=== PATIENT | female | born 1975 | race Caucasian/White ===

== ENCOUNTER 2018-01-25 12:06 | Emergency (ER) | payer SELFPAY ==
[~2018-01-25] VITALS: Ht 160 cm; Wt 126.1 kg
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
[2018-01-25 14:00] VITALS: BP 144/82
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
[2018-01-25] MEDS ORDERED: DICL50TA4 PO (14:57)
[2018-01-25] MEDS ORDERED: CYCL10TA2 PO (14:57)
== END 2018-01-25 14:55 | disposition home or self-care (01) ==
LOC: ER 12:06
DX: S29.019A Strain of muscle and tendon of unspecified wall of thorax, initial encounter (principal); S16.1XXA Strain of muscle, fascia and tendon at neck level, initial encounter; V53.6XXA Passenger in pick-up truck or van injured in collision with car, pick-up truck or van in traffic accident, initial encounter; Y93.89 Activity, other specified; Y92.410 Unspecified street and highway as the place of occurrence of the external cause; Y99.8 Other external cause status
CPT/HCPCS: 72125; 72128; 99284

== ENCOUNTER 2018-05-12 05:15 | Emergency (ER) | payer SELFPAY ==
[~2018-05-12] VITALS: Ht 160 cm; Wt 126.1 kg
[~2018-05-12 05:15] MED LIST: CYCL10TA2 PO; DICL50TA4 PO
[2018-05-12] MEDS ORDERED: IPRATRPIUM/ALBUTEROL 0.5/2.5MG 3 ML NEBU. NEB ONE (05:30)
--- NOTE | 2018-05-12 05:31 | PHYS DOC ---
Past Medical History Past Medical History: Asthma Past Surgical History: No Surgical History Alcohol Use: None Drug Use: None Adult General Chief Complaint Chief Complaint: ASTHMA HPI HPI Patient is a 42-year-old female who presents with complaint of wheezing and shortness of breath that started yesterday. Patient states that she has a nebulizer at home and has done one treatment without success. She states that she thought that this was just a viral infection that it would get better but she is getting worse. She denies any fever or productive cough. She also denies any congestion. Patient states that symptoms are worsened with minimal exertion. She states that she has no alleviating factors. Review of Systems Review of Systems Constitutional: Denies fever or chills [] HENT: Denies nasal congestion or sore throat [] Respiratory: [place] of cough, wheezing and shortness of breath [] Cardiovascular: No additional information not addressed in HPI [] Integument: Denies rash or skin lesions [] All other systems were reviewed and found to be within normal limits, except as documented in this note. Current Medications Current Medications Current Medications Medications (Trade) Dose Ordered Sig/Radha Start Time Stop Time Status Last Admin Dose Admin Acetaminophen (Tylenol) 1,000 mg 1X ONCE 05/12/18 05:45 05/12/18 05:46 DC 05/12/18 05:55 1,000 MG Albuterol/ Ipratropium (Duoneb) 3 ml 1X ONCE 05/12/18 05:30 05/12/18 05:32 DC 05/12/18 05:31 3 ML Methylprednisolone Sodium Succinate (SOLU-Medrol 125MG VIAL) 125 mg 1X ONCE 05/12/18 05:45 05/12/18 05:46 DC 05/12/18 05:54 125 MG Allergies Allergies Allergies Coded Allergies Type Severity Reaction Last Updated Verified Penicillins Allergy Unknown 05/12/18 Yes Uncoded Allergies Type Severity Reaction Last Updated Verified asa Allergy Unknown Unknown 05/12/18 Physical Exam Physical Exam Constitutional: Well developed, well nourished, no acute distress, non-toxic appearance. [] HENT: Normocephalic, atraumatic, bilateral external ears normal, oropharynx moist, no oral exudates, nose normal. [] Eyes: PERRLA, EOMI, conjunctiva normal, no discharge. [] Neck: Normal range of motion, no tenderness, supple, no stridor. [] Cardiovascular: Mildly tachycardic rate with regular rhythm [] Lungs & Thorax: There is fairly good air movement throughout with inspiratory and expiratory wheezes bilaterally to auscultation [] Abdomen: Bowel sounds normal, soft, no tenderness. [] Skin: Warm, dry, no erythema, no rash. [] Extremities: No tenderness, no cyanosis, no clubbing, ROM intact, no edema. [] Neurologic: Awake and alert, no focal deficits noted. [] Current Patient Data Vital Signs Vital Signs Date Time Temp Pulse Resp B/P (MAP) Pulse Ox O2 Delivery O2 Flow Rate FiO2 05/12/18 05:36 96 Room Air 05/12/18 05:29 99.7 102 32 121/74 (90) 99.7 Lab Values Laboratory Tests Test 05/12/18 05:20 05/12/18 05:30 White Blood Count 9.2 x10^3/uL (4.0-11.0) Red Blood Count 4.42 x10^6/uL (3.50-5.40) Hemoglobin 12.4 g/dL (12.0-15.5) Hematocrit 37.5 % (36.0-47.0) Mean Corpuscular Volume 85 fL (79-100) Mean Corpuscular Hemoglobin 28 pg (25-35) Mean Corpuscular Hemoglobin Concent 33 g/dL (31-37) Red Cell Distribution Width 15.9 % (11.5-14.5) H Platelet Count 309 x10^3/uL (140-400) Neutrophils (%) (Auto) 75 % (31-73) H Lymphocytes (%) (Auto) 17 % (24-48) L Monocytes (%) (Auto) 5 % (0-9) Eosinophils (%) (Auto) 2 % (0-3) Basophils (%) (Auto) 1 % (0-3) Neutrophils # (Auto) 6.9 x10^3uL (1.8-7.7) Lymphocytes # (Auto) 1.6 x10^3/uL (1.0-4.8) Monocytes # (Auto) 0.4 x10^3/uL (0.0-1.1) Eosinophils # (Auto) 0.2 x10^3/uL (0.0-0.7) Basophils # (Auto) 0.1 x10^3/uL (0.0-0.2) Sodium Level 140 mmol/L (136-145) Potassium Level 3.7 mmol/L (3.5-5.1) Chloride Level 105 mmol/L (98-107) Carbon Dioxide Level 27 mmol/L (21-32) Anion Gap 8 (6-14) Blood Urea Nitrogen 9 mg/dL (7-20) Creatinine 0.8 mg/dL (0.6-1.0) Estimated GFR (Cockcroft-Gault) 79.4 BUN/Creatinine Ratio 11 (6-20) Glucose Level 123 mg/dL (70-99) H Lactic Acid Level 2.3 mmol/L (0.4-2.0) H Calcium Level 8.3 mg/dL (8.5-10.1) L Total Bilirubin 0.2 mg/dL (0.2-1.0) Aspartate Amino Transferase (AST) 14 U/L (15-37) L Alanine Aminotransferase (ALT) 18 U/L (14-59) Alkaline Phosphatase 164 U/L (46-116) H Total Protein 7.3 g/dL (6.4-8.2) Albumin 2.4 g/dL (3.4-5.0) L Albumin/Globulin Ratio 0.5 (1.0-1.7) L Influenza Type A Antigen Negative (NEGATIVE) Influenza Type B Antigen Negative (NEGATIVE) Laboratory Tests 05/12/18 05:20 Laboratory Tests 05/12/18 05:20 EKG EKG [] Radiology/Procedures Radiology/Procedures [] Impressions: sharyn suspect right basilar pna atypical pattern Course & Med Decision Making Course & Med Decision Making Pertinent Labs and Imaging studies reviewed. (See chart for details) [] lnaghan: sign out from kassandra, asthma exacerbation. Getting labs and asked me to reassess and x-ray suspect atypical pattern pna. sat 94 ra on my reeval and she feels much better, the lungs sound good, minimal if any wheeze rx prednisone albuterol doxycycline flu neg return prec discussed pt reassured Juarze Disclaimer Juarez Disclaimer This electronic medical record was generated, in whole or in part, using a voice recognition dictation system. Departure Departure Impression: Primary Impression: Pneumonia Disposition: 01 HOME, SELF-CARE Condition: STABLE Referrals: NO PCP (PCP) Scripts Albuterol Sulfate (ALBUTEROL SULFATE NEB SOLN) 2.5 Mg/3 Ml Vial.neb 1 VIAL NEB PRN Q4HRS, #50 VIAL Prov: JAYASHREE VINSON MD 05/12/18 Prednisone (PREDNISONE) 50 Mg Tablet 1 TAB PO DAILY, #5 TAB Prov: JAYASHREE VINSON MD 05/12/18 Doxycycline Hyclate (DOXYCYCLINE HYCLATE) 100 Mg Tablet 1 TAB PO BID, #20 TAB Prov: JAYASHREE VINSON MD 05/12/18 KIANA RUIZ Jr. DO May 12, 2018 05:31 JAYASHREE VINSON MD May 12, 2018 07:16
[2018-05-12] MEDS ORDERED: methylPREDNISolone SOD SUCC PF 125 MG/2 ML VIAL. IV ONE (05:45)
[2018-05-12] MEDS ORDERED: ACETAMINOPHEN 500 MG TABLET PO ONE (05:45)
[2018-05-12 05:48] LABS: BASO # 0.1 x10^3/uL (0.0-0.2); BASO % 1 % (0-3); EOS # 0.2 x10^3/uL (0.0-0.7); EOS % 2 % (0-3); HEMATOCRIT 37.5 % (36.0-47.0); HEMOGLOBIN 12.4 g/dL (12.0-15.5); LYMPH # 1.6 x10^3/uL (1.0-4.8); LYMPH % 17 % (24-48); MEAN CORPUSCULAR HEMOGLOBIN 28 pg (25-35); MEAN CORPUSCULAR HGB CONC 33 g/dL (31-37); MEAN CORPUSCULAR VOLUME 85 fL (79-100); MONO # 0.4 x10^3/uL (0.0-1.1); MONO % 5 % (0-9); NEUT # 6.9 x10^3uL (1.8-7.7); NEUT % 75 % (31-73); PLATELET COUNT 309 x10^3/uL (140-400); RED BLOOD COUNT 4.42 x10^6/uL (3.50-5.40); RED CELL DISTRIBUTION WIDTH 15.9 % (11.5-14.5); WHITE BLOOD COUNT 9.2 x10^3/uL (4.0-11.0)
[2018-05-12 05:57] LABS: CALCIUM 8.3 mg/dL (8.5-10.1); CREATININE 0.8 mg/dL (0.6-1.0); GFR 79.4; POTASSIUM 3.7 mmol/L (3.5-5.1)
[2018-05-12 06:03] LABS: ALBUMIN 2.4 g/dL (3.4-5.0); ALBUMIN/GLOBULIN RATIO 0.5 (1.0-1.7); TOTAL BILIRUBIN 0.2 mg/dL (0.2-1.0); TOTAL PROTEIN 7.3 g/dL (6.4-8.2)
[2018-05-12 06:28] LABS: INFLUENZA A PATIENT NEGATIVE (NEGATIVE); INFLUENZA B PATIENT NEGATIVE (NEGATIVE)
[2018-05-12 06:58] VITALS: BP 123/79
--- NOTE | 2018-05-12 07:00 | EKG ---
[facility] [address] [place] [address] Test Date: 2018-05-12 Test Time: 05:58:04 Pat Name: BHANU TOUSSAINT Department: Room: Gender: F Web Producer: : 1975 Requested By: KIANA RUIZ Order Number: [id number] Reading MD: Fransisco Astorga Measurements Intervals [place] Rate: 92 P: 36 HI: 144 QRS: 49 QRSD: 74 T: 43 QT: 350 QTc: 438 Interpretive Statements SINUS RHYTHM Electronically Signed On 05-26-2018 14:20:30 COURT BAILIFF OR SHERIFF by Fransisco Astroga
[2018-05-12] MEDS ORDERED: DOXY100T PO (07:05)
[2018-05-12] MEDS ORDERED: PRED50TA PO (07:05)
[2018-05-12] MEDS ORDERED: ALBU2.5V5 NEB (07:08)
--- NOTE | 2018-05-12 07:46 | RAD ---
Chest, 2 views, 05/12/2018: HISTORY: Shortness of breath, chest pain The heart size is normal. No pulmonary infiltrate is seen. There is no evidence of pleural fluid. Moderate hypertrophic spurring is present in the spine. IMPRESSION: No acute cardiopulmonary abnormality is detected. Electronically signed by: Luis Lofton MD (05/12/2018 7:41 AM) [facility]
== END 2018-05-12 07:22 | disposition home or self-care (01) ==
LOC: ER 05:15
DX: J18.9 Pneumonia, unspecified organism (principal); J45.909 Unspecified asthma, uncomplicated; Z88.0 Allergy status to penicillin; Z88.8 Allergy status to other drugs, medicaments and biological substances
CPT/HCPCS: 36415; 71046; 80053; 83605; 85025; 87040; 87804; 93005; 94640; 96374; 99284; J2930; J7620

== ENCOUNTER 2018-08-26 02:34 | Emergency (ER) | payer SELFPAY ==
[~2018-08-26] VITALS: Ht 160 cm; Wt 137.4 kg
[~2018-08-26 02:34] MED LIST changes: +ALBU2.5V5 NEB; +DOXY100T PO; +PRED50TA PO
[2018-08-26 03:27] LABS: BASO # 0.1 x10^3/uL (0.0-0.2); BASO % 1 % (0-3); EOS # 0.2 x10^3/uL (0.0-0.7); EOS % 2 % (0-3); HEMATOCRIT 37.1 % (36.0-47.0); HEMOGLOBIN 12.2 g/dL (12.0-15.5); LYMPH # 2.4 x10^3/uL (1.0-4.8); LYMPH % 21 % (24-48); MEAN CORPUSCULAR HEMOGLOBIN 28 pg (25-35); MEAN CORPUSCULAR HGB CONC 33 g/dL (31-37); MEAN CORPUSCULAR VOLUME 85 fL (79-100); MONO # 0.5 x10^3/uL (0.0-1.1); MONO % 5 % (0-9); NEUT # 8.4 x10^3uL (1.8-7.7); NEUT % 72 % (31-73); PLATELET COUNT 284 x10^3/uL (140-400); RED BLOOD COUNT 4.37 x10^6/uL (3.50-5.40); RED CELL DISTRIBUTION WIDTH 15.8 % (11.5-14.5); WHITE BLOOD COUNT 11.7 x10^3/uL (4.0-11.0)
[2018-08-26 03:45] LABS: PREG TEST PT QUAL NEGATIVE (NEG)
--- NOTE | 2018-08-26 03:59 | PHYS DOC ---
Past Medical History Past Medical History: Asthma, Diabetes-Type II Past Surgical History: Smoking: Cigarettes Alcohol Use: None Drug Use: None Adult General Chief Complaint Chief Complaint: LOWER EXTREMITY EDEMA HPI HPI Patient is a 43 year old female presents to be due to chief complaint of bilateral lower extremity swelling and tenderness. Patient states that the swelling has been present for the past few months. Vision said that she is been on multiple water pills but this has not resolved his symptoms. Patient states that tonight she about a minute was increased pain in both her legs and so she came to the ED. Patient denies chest pain, fever, chills, nausea, vomiting, diarrhea, dysuria, shortness of breath. Review of Systems Review of Systems Patient denies fever, chills, nausea, vomiting, diarrhea, dysuria, chest pain, [place]. Patient complains of bilateral lower extremity swelling and tenderness. Current Medications Current Medications Current Medications Medications (Trade) Dose Ordered Sig/Radha Start Time Stop Time Status Last Admin Dose Admin Furosemide (Lasix) 20 mg 1X ONCE 08/26/18 05:30 08/26/18 05:31 DC 08/26/18 05:42 20 MG Allergies Allergies Allergies Coded Allergies Type Severity Reaction Last Updated Verified Penicillins Allergy Unknown 05/12/18 Yes Uncoded Allergies Type Severity Reaction Last Updated Verified asa Allergy Unknown Unknown 05/12/18 Physical Exam Physical Exam Constitutional: Well developed, well nourished, no acute distress, non-toxic appearance. HENT: Normocephalic, atraumatic, normocaphalic Eyes: PERRL, EOMI Neck: Normal range of motion, no tenderness, supple Cardiovascular:Heart rate regular rhythm, no murmur Resp: Bilateral breath sounds clear to auscultation Abdomen: Soft, no tenderness, no distension Skin: Warm, dry, no erythema, no rash. Back: No tenderness, no CVA tenderness. Extremities: Bilateral lower extremity edema Neurologic: Alert and oriented X 3, normal motor function, normal sensory function, no focal deficits noted. Psychologic: Affect normal, judgement normal, mood normal. Current Patient Data Vital Signs Vital Signs Date Time Temp Pulse Resp B/P (MAP) Pulse Ox O2 Delivery O2 Flow Rate FiO2 08/26/18 06:10 72 165/91 (115) 96 Room Air 08/26/18 02:37 98.1 20 98.1 Lab Values Laboratory Tests Test 08/26/18 03:16 08/26/18 03:50 White Blood Count 11.7 x10^3/uL (4.0-11.0) H Red Blood Count 4.37 x10^6/uL (3.50-5.40) Hemoglobin 12.2 g/dL (12.0-15.5) Hematocrit 37.1 % (36.0-47.0) Mean Corpuscular Volume 85 fL (79-100) Mean Corpuscular Hemoglobin 28 pg (25-35) Mean Corpuscular Hemoglobin Concent 33 g/dL (31-37) Red Cell Distribution Width 15.8 % (11.5-14.5) H Platelet Count 284 x10^3/uL (140-400) Neutrophils (%) (Auto) 72 % (31-73) Lymphocytes (%) (Auto) 21 % (24-48) L Monocytes (%) (Auto) 5 % (0-9) Eosinophils (%) (Auto) 2 % (0-3) Basophils (%) (Auto) 1 % (0-3) Neutrophils # (Auto) 8.4 x10^3uL (1.8-7.7) H Lymphocytes # (Auto) 2.4 x10^3/uL (1.0-4.8) Monocytes # (Auto) 0.5 x10^3/uL (0.0-1.1) Eosinophils # (Auto) 0.2 x10^3/uL (0.0-0.7) Basophils # (Auto) 0.1 x10^3/uL (0.0-0.2) Serum Test, Qualitative Negative (NEG) Sodium Level 138 mmol/L (136-145) Potassium Level 3.5 mmol/L (3.5-5.1) Chloride Level 104 mmol/L (98-107) Carbon Dioxide Level 29 mmol/L (21-32) Anion Gap 5 (6-14) L Blood Urea Nitrogen 15 mg/dL (7-20) Creatinine 0.8 mg/dL (0.6-1.0) Estimated GFR (Cockcroft-Gault) 79.0 BUN/Creatinine Ratio 19 (6-20) Glucose Level 189 mg/dL (70-99) H Calcium Level 9.1 mg/dL (8.5-10.1) Total Bilirubin 0.1 mg/dL (0.2-1.0) L Aspartate Amino Transferase (AST) 15 U/L (15-37) Alanine Aminotransferase (ALT) 17 U/L (14-59) Alkaline Phosphatase 143 U/L (46-116) H ZF-Xga-Y-Type Natriuretic Peptide 132 pg/mL (0-124) H Total Protein 7.2 g/dL (6.4-8.2) Albumin 2.3 g/dL (3.4-5.0) L Albumin/Globulin Ratio 0.5 (1.0-1.7) L Laboratory Tests 08/26/18 03:16 Laboratory Tests 08/26/18 03:50 EKG EKG [] Radiology/Procedures Radiology/Procedures PROCEDURE: PORTABLE CHEST 1V PROCEDURE: PORTABLE CHEST 1V CLINICAL INDICATION: frank leg swelling COMPARISON: None FINDINGS: No pneumothorax identified. Cardiac and mediastinal contours unremarkable. No pulmonary consolidation or acute airspace disease. No acute osseous abnormalities identified. IMPRESSION: No pulmonary consolidation or acute airspace disease. Electronically signed by: Reji Mallory DO (08/26/2018 5:04 AM) [facility] PROCEDURE: VENOUS LOWER EXT BILATERAL Ultrasound venous Doppler INDICATION:Bilateral lower extremity SWELLING X 6 YRS
MORBID OBESITY. TECHNIQUE: Grayscale, color Doppler and spectral waveform ultrasound images of the bilateral lower extremities deep veins obtained. COMPARISON: None FINDINGS: The interrogated deep veins are compressible and demonstrate evidence of blood flow with normal respiratory variation and response to augmentation. IMPRESSION: No sonographic evidence of acute DVT of the bilateral lower extremity deep veins. Electronically signed by: Reji Mallory DO (08/26/2018 6:37 AM) [facility] Course & Med Decision Making Course & Med Decision Making Pertinent Labs and Imaging studies reviewed. (See chart for details) Ordered Labs, chest x-ray, UA. Labs are within normal limits. Chest x-ray does not show any acute changes. Patient continues to say that the swelling is increased feet. I have ordered ultrasound of bilateral lower extremities. I will also given patient 20 mg IV Lasix. If bilateral ultrasound of the lower extremities is negative for DVT patient can be discharged home for outpatient follow-up. US neg for DVT. Discussed results and plan of care with patient. Patient is instructed to follow up with PCP in one to 2 days. Appropriate discharge instructions given to patient to return to the ED or to seek immediate medical evaluation. Dragon Disclaimer Dragon Disclaimer This electronic medical record was generated, in whole or in part, using a voice recognition dictation system. Departure Departure Referrals: JAVAN MELLO-C (PCP) NORA KIM DO August 26, 2018 03:59
[2018-08-26 04:13] LABS: CALCIUM 9.1 mg/dL (8.5-10.1); CREATININE 0.8 mg/dL (0.6-1.0); POTASSIUM 3.5 mmol/L (3.5-5.1)
[2018-08-26 04:19] LABS: ALBUMIN 2.3 g/dL (3.4-5.0); ALBUMIN/GLOBULIN RATIO 0.5 (1.0-1.7); TOTAL BILIRUBIN 0.1 mg/dL (0.2-1.0); TOTAL PROTEIN 7.2 g/dL (6.4-8.2)
--- NOTE | 2018-08-26 05:07 | RAD ---
PROCEDURE: PORTABLE CHEST 1V CLINICAL INDICATION: frank leg swelling COMPARISON: None FINDINGS: No pneumothorax identified. Cardiac and mediastinal contours unremarkable. No pulmonary consolidation or acute airspace disease. No acute osseous abnormalities identified. IMPRESSION: No pulmonary consolidation or acute airspace disease. Electronically signed by: Reji Mallory DO (08/26/2018 5:04 AM) [id number]
[2018-08-26] MEDS ORDERED: FUROSEMIDE 20 MG/2 ML VIAL. IVP ONE (05:30)
[2018-08-26 06:10] VITALS: BP 165/91
--- NOTE | 2018-08-26 06:40 | RAD ---
Ultrasound venous Doppler INDICATION:Bilateral lower extremity SWELLING X 6 YRS
MORBID OBESITY. TECHNIQUE: Grayscale, color Doppler and spectral waveform ultrasound images of the bilateral lower extremities deep veins obtained. COMPARISON: None FINDINGS: The interrogated deep veins are compressible and demonstrate evidence of blood flow with normal respiratory variation and response to augmentation. IMPRESSION: No sonographic evidence of acute DVT of the bilateral lower extremity deep veins. Electronically signed by: Reji Mallory DO (08/26/2018 6:37 AM) [id number]
== END 2018-08-26 07:01 | disposition home or self-care (01) ==
LOC: ER 02:34
DX: R60.0 Localized edema (principal); M79.89 Other specified soft tissue disorders; J45.909 Unspecified asthma, uncomplicated; F17.210 Nicotine dependence, cigarettes, uncomplicated; E11.9 Type 2 diabetes mellitus without complications; Z98.890 Other specified postprocedural states; Z88.0 Allergy status to penicillin; Z88.8 Allergy status to other drugs, medicaments and biological substances
CPT/HCPCS: 36415; 71045; 80053; 83880; 84703; 85025; 93970; 96374; 99285; J1940

== ENCOUNTER 2021-02-25 10:52 | Emergency (ER) | payer OTHER ==
[~2021-02-25] VITALS: Ht 160 cm; Wt 117.3 kg
[~2021-02-25 10:52] MED LIST changes: +CYCL10TA19 PO; -CYCL10TA2 PO
[2021-02-25] MEDS ORDERED: ACETAMINOPHEN 325 MG TABLET. PO ONE (13:00)
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
[2021-02-25] MEDS ORDERED: BACITRACIN TOPICAL OINT PACKET. TP ONE (14:15)
[2021-02-25] MEDS ORDERED: CYCL10TA19 PO (14:26)
[2021-02-25 14:31] VITALS: BP 138/78
== END 2021-02-25 14:36 | disposition home or self-care (01) ==
LOC: ER 10:52
DX: E13.621 Other specified diabetes mellitus with foot ulcer (principal); L97.519 Non-pressure chronic ulcer of other part of right foot with unspecified severity; M54.2 Cervicalgia; M54.6 Pain in thoracic spine; J45.909 Unspecified asthma, uncomplicated; G89.11 Acute pain due to trauma; Z88.0 Allergy status to penicillin; Z88.6 Allergy status to analgesic agent; V49.59XA Passenger injured in collision with other motor vehicles in traffic accident, initial encounter; Y93.89 Activity, other specified; Y92.488 Other paved roadways as the place of occurrence of the external cause; Y99.8 Other external cause status
CPT/HCPCS: 99283